=== PATIENT | female | born 1950 | race Caucasian/White ===

== ENCOUNTER 2016-11-09 08:54 | Day surgery (SDC) | payer MEDICARE ==
[~2016-11-09] VITALS: Ht 160 cm; Wt 65.4 kg
[2016-11-09] MEDS ORDERED: NITR1SUB3 SL (09:29)
[2016-11-09] MEDS ORDERED: ATOR1TAB18 PO (09:29)
[2016-11-09] MEDS ORDERED: CHOL100025 CHEW (09:29)
[2016-11-09] MEDS ORDERED: MAG-TAB PO (09:29)
[2016-11-09] MEDS ORDERED: LEVO50TA4 PO (09:29)
[2016-11-09] MEDS ORDERED: LISI20TA PO (09:29)
[2016-11-09] MEDS ORDERED: ASPI81CH37 CHEW (09:29)
[2016-11-09 09:30] VITALS: BP 171/105; PULSE 65; RESP 16; TEMP 98; O2SAT 98
[2016-11-09 09:39] LABS: AUTOMATED NEUTROPHIL # 2.4 TH/MM3 (1.8-7.7); BASOPHIL # 0.1 TH/MM3 (0-0.2); EOSINOPHIL # 0.2 TH/MM3 (0-0.4); EOSINOPHIL % 4.6 % (0.0-4.0); HEMO FLAGS DIFF FINAL; LYMPHOCYTE # 1.9 TH/MM3 (1.0-4.8); MEAN CELL VOLUME 88.8 FL (80.0-100.0); MEAN CORPUSCULAR HEMOGLOBIN 29.9 PG (27.0-34.0); MEAN CORPUSCULAR HGB CONC 33.7 % (32.0-36.0); MONO % 7.8 % (0.0-8.0); NEUT % 48.6 % (16.0-70.0); PLATELET COUNT 204 TH/MM3 (150-450); RED CELL DISTRIBUTION WIDTH 13.4 % (11.6-17.2)
[2016-11-09 09:45] LABS: APTT (PATIENT) 23.8 SEC (24.3-30.1); INTERNATIONAL NORMALIZED RATIO 0.9 RATIO; PROTHROMBIN TIME - PATIENT 10.2 SEC (9.8-11.6)
[2016-11-09] MEDS ORDERED: diphenhydrAMINE HCL 50 MG CAP PO SCH ×2 (09:45→10:45)
[2016-11-09] MEDS ORDERED: NS 1000P @30 MLS/HR (KVO) IV SCH ×2 (09:45→10:45)
[2016-11-09 10:03] LABS: BICARBONATE 29.5 MEQ/L (21.0-32.0); POTASSIUM 3.4 MEQ/L (3.5-5.1)
[2016-11-09] MEDS ORDERED: HEPARIN-NS/PF INJ 500 ML ONE (11:27)
[2016-11-09] MEDS ORDERED: MIDAZOLAM HCL 2 MG/2 ML VIAL ONE ×2 (11:27→12:31)
[2016-11-09] MEDS ORDERED: VERAPAMIL HCL 5 MG/2 ML VIAL ONE (11:28)
[2016-11-09] MEDS ORDERED: NITROGLYCERIN INJ 5 ML ONE (11:28)
[2016-11-09] MEDS ORDERED: HEPARIN SODIUM - IV 10,000 UNITS/10 ML VIAL ONE (11:28)
[2016-11-09] MEDS ORDERED: IOHEXOL 350 MG/ML 100 ML BTL (for Cath Lab) OTHER ONE (11:50)
[2016-11-09] MEDS ORDERED: PRASUGREL 10 MG TAB ONE (13:04)
--- NOTE | 2016-11-09 13:30 | CATHPROC ---
[employer] HIS Report Study Information Study Number Admission Scheduled Start Study Start [id number] Nov 09 2016 8:54AM 11/09/2016 Nov 09 2016 12:03PM [place] Service Cardiac Catheterization Admit Source Facility Department Other [facility] - [facility] Physician and Clinical Staff Initial MD Lewis, Jared Organizational Research Consultant Erika Pickering BSRKatiana Recorder Lizbet Jacobs,MACHINE FEEDER FLOORPERSON TECH2 Scrub Malathi Corado,MOTTLE LAY UP OPERATOR TECH2 Procedures Performed Procedure Location (Site) Vessel Name Coronary Angiograms LCA Left Coronary Coronary Angiograms RCA Right Coronary Drug Eluting Inflatio LAD Prox Left Coronary LV Gram-hand inj. LV LV Ventricle PTCA LAD Prox Left Coronary Wire insertion Radial (right) Radial Art. Equipment Time Field Rep Description Size Mfg Part Number Used/Scraped WIRE, BALANCE MIDDLEWEIGHT [id number] 12:39 [employer] 190CM Used 190CM *[id number] TRANSDUCER, TRUWAVE [id number] 12:08 PRABHAKAR CAVAZOS * Used W/STOCKCOCK *[id number] [id number] *[id number] [id number] *[id number] *[id number] 12:08 [employer] PACK, CCL CUSTOM * Used *[id number] 12:08 [employer] SUPPORT, ARTERIAL ADULT [id number] Used BALLOON, 2.5 X 12MM NC [id number] 12:42 MEDTRONIC 12MM Used EUPHORA *[id number] BALLOON, 3.0 X 8MM NC [id number] 12:46 MEDTRONIC 8MM Used EUPHORA *[id number] BALLOON, 3.5 X 15MM NC [id number] 12:55 MEDTRONIC 15MM Used EUPHORA *[id number] STENT, 3.0 18 RESOLUTE [id number] 12:52 MEDTRONIC 3.0 18 Used INTEGRITY RX *[id number] 12:44 [employer] 30 FROILAN INDEFLATOR Used *[id number] BAND, RADIAL COMPRESSION TR [id number] 13:18 [employer] MEDICAL 24CM Used SHORT 24 *[id number] 12:08 [employer] WIRE, 3MMJ .035 180CM 180CM Used *[id number] 12:08 NAMIC MANIFOLD, 4 PORT * Used *[id number] 12:08 [employer]ED OMNIPAQUE, 350 MG, 150ML 150ML [id number] Used [id number] 12:08 [facility] BLANKET,WARM AIR CCL * Used *[id number] SHEATH, FR6 TRANSRADIAL 12:08 [employer]zzle FR 6 RM*[id number] Used SLENDER 10CM Equipment Model, Serial, Lot Number and Expiration Data Description Model Number Serial Number Lot Number Expiration Date STENT, 3.0 18 RESOLUTE [id number] 07-15-2018 INTEGRITY RX History: Current Medications Medication Dosage/Unit Route Frequency Last Date/Time Taken ASA Statins (any) Synthroid LISINOPRIL Magnesium NTG SL VITAMIN D History: Allergies Allergy Reaction No Known Allergies History: Risk Factors Family History of Hypertension Dyslipidemia Previous OK Previous Heart Failure Premature CAD Yes Yes No No No Prior Valve Prior PCI Prior CABG Surgery No Yes No Cerebrovascular Peripheral Artery Chronic Lung On Dialysis Diabetes Disease Disease Disease No No No No No History: Symptoms/Diagnosis Selection Items Chest pain History: CV Disease Selection Items Known CAD History: Stress Tests Stress or Imaging Studies Performed No History: Other Disease Selection Items CAD History: Other Current Smoker No Labs Hgb (g/dl) Hct (%) WBC (l/cumm) Platelets (thousands) 11.60-17.00 35.00-51.00 4.00-11.00 150.00-450.00 13.5 40 5 204 Glucose (mg/dl) BUN (mg/dl) Creatinine (mg/dl) BUN:Creatinine (1:x) 74.00-106.00 7.00-18.00 0.50-1.30 10.00-20.00 87 14 0.7 20 Na (meq/l) K (meq/l) Cl (meq/l) CO2 (mmol/L) Ca (mg/dl) 136.00-145.00 3.50-5.10 98.00-107.00 21.00-32.00 8.50-10.10 138 3.4 104 29.5 9.3 PT (sec) PTT (sec) INR (PTT:PT) 9.80-11.60 24.30-30.10 0.90-1.10 10.2 23.8 0.9 CPK-MB (ng/ML) 0.50-3.60 Not Drawn Medication Medication Total Dose (Bolus/Oral) Medication Total Dosage/Unit 1% XYLOCAINE 20 mL EFFIENT 60 mg FENTANYL 100 mcg HEPARIN 5000 units RADIAL COCKTAIL 5 mL (Bolus) VERSED 4 mg Medications (Bolus/Oral) Medication Time Given Dosage/Unit Administered By Reason VERSED 11/09/2016 12:18:03 PM 2 mg Rittenour, Erika 2 mg VERSED given in lab by Erika Pickering BSRN in Left Antecubital via Peripheral IV. Ordered by Jared Lewis. FENTANYL 11/09/2016 12:19:00 PM 50 mcg Rittenour, Erika 50 mcg FENTANYL given in lab by Erika Pickering BSRN in Left Antecubital via Peripheral IV. Ordered by Jared Lewis. 1% XYLOCAINE 11/09/2016 12:20:33 PM 20 mL Jared Lewis 20 mL 1% XYLOCAINE given in lab by Jared Lewis in Right Radial via Subcutaneous. Ordered by Jared Zhu. Ntg 200mcg Verapamil 2.5mg Heparin RADIAL COCKTAIL 11/09/2016 12:23:06 PM 5 mL (Bolus) Jared Lewis 2500U 5 mL (Bolus) RADIAL COCKTAIL given in lab by Jared Lewis in Right Radial via Radial. Using [Maureen ution Name]. Ordered by Jared Lewis. Reason: Ntg 200mcg Verapamil 2.5mg Heparin 2500U. FENTANYL 11/09/2016 12:30:28 PM 50 mcg Rittenour, Erika 50 mcg FENTANYL given in lab by Erika Pickering BSRN in Left Antecubital via Peripheral IV. Ordered by Jared Lewis. VERSED 11/09/2016 12:31:38 PM 2 mg Rittenour, Erika 2 mg VERSED given in lab by Erika Pickering BSRN in Left Antecubital via Peripheral IV. Ordered by Jared Lewis. HEPARIN 11/09/2016 12:32:07 PM 5000 units Rittenour, Erika 5000 units HEPARIN given in lab by Erika Pickering BSRN in Left Antecubital via Peripheral IV. Orde red by Jared Lewis. EFFIENT 11/09/2016 1:11:21 PM 60 mg Rittenour, Erika 60 mg EFFIENT given in lab by Erika Pickering BSRN via Oral. Ordered by Jared Lewis. Medication (Drip) Medication Time Given Dosage/Unit Concentration/Unit Diluent (ml) Solution IV Solutions 11/09/2016 12:03:18 PM 0 mL (IV) 500 NaCl .9 Patient arrived on IV Solutions in Left Antecubital via Peripheral IV. Pump/Drip Flow = 20 ml/hr usin g NaCl .9. Initial Case Assessment Cardiovascular HR Rhythm NIBP Chest Pain 65 sr 187/103 0 Circulatory - Right Pulses Dorsalis Pedis Femoral Radial 2 2 2 Scale (0,1,2,3,4,d) Scale (0,1,2,3,4,d) Neurological State Oriented to time-place- Alert Moves all extremities person Respiration - General Respiration Rate SpO2 (%) (B/min) 10 100 Final Case Assessment Cardiovascular HR Rhythm NIBP Chest Pain 57 SB 165/84 0 Circulatory - Right Pulses Dorsalis Pedis Femoral Radial 2 2 2 Scale (0,1,2,3,4,d) Scale (0,1,2,3,4,d) Neurological State Oriented to time-place- Alert Moves all extremities person Respiration - General Respiration Rate SpO2 (%) (B/min) 19 100 Chronological Log Time Study Chronological Log 11:50:38 Patient arrived via Bed. 11:50:47 Patient Name, D.O.B, / Armband Verified By R.N. 12:02:56 Pre-op and post- op instructions given; patient acknowledges understanding of instructions. 12:02:57 Verbal Stimulation=2 Physical Stimulation=2 Airway=2 Respiration=2 TOTAL=8. (0=absent, 1=li mited, 2=present) 12:03:04 Allens test performed on the right radial and ulnar artery. 12:03:08 Patient has been NPO for More than 6Hrs. 12:03:09 Skin Breakdown-none 12:03:14 Zaid Prominences Protected 12:03:16 A # 20 IV was noted in the Antecubital (left). Grade = patent 12:03:18 Patient arrived on IV Solutions in Left Antecubital via Peripheral IV. Pump/Drip Flow = 20 ml/hr using NaCl .9. 12:03:23 History and physical on the chart or being dictated. Assessment: Initial Case, HR=65 BPM, Rhythm=sr, KJSG=163/103 mmhg, Chest Pain=0 Right Pulses: Grant Ped=2, Femoral=2, Radial=2 12:03:25 Neurological: State=Alert, Ox3, SHULTZ Respiration: Resp=10 B/min, WoG7=712 % Vitals capture started with the following parameters, Patient=Adult, Interval=5 min, Initial Pr isatrv=955 mmHg, 12:03:58 Deflation Rate=5 mmHg 12:04:41 HR=96 bpm, DNRN=122/103 mmhg, GdH2=315.0 %, Resp=16 B/min 12:09:02 Reference ECG taken 12:10:03 Right groin and right wrist prepped with 2% chlorhexidine, and draped after a 3 min. waitin g time. 12:10:29 HR=61 bpm, GFCH=522/88 mmhg, QwM8=226.0 %, Resp=8 B/min, David=10 12:10:40 Pressure channel 1 zeroed. 12:14:39 HR=62 bpm, LNVF=793/91 mmhg, SpO2=96.0 %, Resp=2 B/min, Pain=0, David=10 12:14:56 MD paged 12:16:18 MD arrived. 12:16:56 Consent signed by the physician and the patient and verified by the [facility] staff. 2 mg VERSED given in lab by Erika Pickering BSRN in Left Antecubital via Peripheral IV. Order ed by Joshua, 12:18:03 Jared. 50 mcg FENTANYL given in lab by Erika Pickering BSRN in Left Antecubital via Peripheral IV. O rdered by Joshua, 12:19:00 Jared. 12:19:42 HR=67 bpm, TUDP=044/95 mmhg, SpO2=97.0 %, Resp=13 B/min Time Out. Correct patient, correct procedure,correct physician, power injector not loaded with contrast with surgical 12:20:05 team present. Time Out Concurred by MD and individual staff in procedure 12:20:32 Case Start 20 mL 1% XYLOCAINE given in lab by Jared Lewis in Right Radial via Subcutaneous. Ordered by Joshua, 12:20:33 Jared. 12:21:13 Access site was Radial Artery. A SHEATH, FR6 TRANSRADIAL SLENDER 10CM FR 6 was advanced into the Radial (right) using the Perc utaneous 12::22 technique. 5 mL (Bolus) RADIAL COCKTAIL given in lab by Jared Lewis in Right Radial via Radial. Usin g [Solution Name]. 12:23:06 Ordered by Jared Lewis. Reason: Ntg 200mcg Verapamil 2.5mg Heparin 2500U. A JR 4.0 INFINITI CATHETER FR 4 was advanced over a wire. OMNIPAQUE, 350 MG, 150ML 150ML was us ed for ::21 injections. 12:24:42 HR=84 bpm, PJKU=303/68 mmhg, SpO2=95.0 %, Resp=17 B/min Recorded Pressure: LV, HR=68, Condition=Condition 1 12:25:02 (Left Ventricle) LV 109/1/2 12:25:17 The LV was manually injected with 10 cc's and visualized. OMNIPAQUE, 350 MG, 150ML 150ML us ed. Recorded Pressure: LV, Ao, HR=69, Condition=Condition 1 12:25:46 (Left Ventricle) LV 107/3/6, (Aorta) Ao 113/73/92 12:26:14 The RCA was injected and visualized at various angles. OMNIPAQUE, 350 MG, 150ML 150ML used . After removing the current catheter a JL 3.5 INFINITI CATHETER FR 4 was advanced over a WIRE, 3 MMJ .035 180CM 12:27:00 180CM. 12:28:55 The LCA was injected and visualized at various angles. OMNIPAQUE, 350 MG, 150ML 150ML used . 12:29:34 HR=60 bpm, GQRF=379/69 mmhg, SpO2=92.0 %, Resp=26 B/min 50 mcg FENTANYL given in lab by Erika Pickering BSRN in Left Antecubital via Peripheral IV. O rdered by Joshua, 12:30:28 Jared. 2 mg VERSED given in lab by Erika Pickering BSRN in Left Antecubital via Peripheral IV. Order ed by Joshua, 12:31:38 Jared. 5000 units HEPARIN given in lab by Erika Pickering BSRN in Left Antecubital via Peripheral IV . Ordered by Mercado- 12:32:07 Jared Desai. After removing the current catheter a XB 3.5 GUIDE CATHETER FR 6 was advanced over a WIRE, 3MMJ .035 180CM 12:33:46 180CM. 12:34:40 HR=67 bpm, GMLG=586/59 mmhg, Resp=5 B/min 12:37:59 A WIRE, BALANCE MIDDLEWEIGHT 190CM 190CM was inserted via Radial (right). 12:40:11 HR=56 bpm, LCEF=178/66 mmhg, SpO2=97.0 %, Resp=7 B/min 12:41:54 Interventional wire has crossed the lesion A BALLOON, 2.5 X 12MM NC EUPHORA 12MM was inserted over WIRE, BALANCE MIDDLEWEIGHT 190CM 190CM via 12:42:20 the LAD Prox. A BALLOON, 2.5 X 12MM NC EUPHORA 12MM over a WIRE, BALANCE MIDDLEWEIGHT 190CM 190CM in the LAD Prox 12:43:49 was inflated using a 30 FROILAN INDEFLATOR at 16 froilan for 18 sec. A BALLOON, 2.5 X 12MM NC EUPHORA 12MM over a WIRE, BALANCE MIDDLEWEIGHT 190CM 190CM in the LAD Prox 12:44:28 was inflated using a 30 FROILAN INDEFLATOR at 20 froilan for 20 sec. 12:44:34 HR=51 bpm, YLMB=077/65 mmhg, SpO2=98.0 %, Resp=15 B/min 12:45:11 Balloon Removed. A BALLOON, 3.0 X 8MM NC EUPHORA 8MM was inserted over WIRE, BALANCE MIDDLEWEIGHT 190CM 190CM vi a the 12:46:33 LAD Prox. A BALLOON, 3.0 X 8MM NC EUPHORA 8MM over a WIRE, BALANCE MIDDLEWEIGHT 190CM 190CM in the LAD Pr ox was 12:47:14 inflated using a 30 FROILAN INDEFLATOR at 18 froilan for 18 sec. A BALLOON, 3.0 X 8MM NC EUPHORA 8MM over a WIRE, BALANCE MIDDLEWEIGHT 190CM 190CM in the LAD Pr ox was 12:47:44 inflated using a 30 FROILAN INDEFLATOR at 20 froilan for 20 sec. 12:50:18 HR=53 bpm, DLJJ=997/66 mmhg, SpO2=98.0 %, Resp=13 B/min 12:50:35 Balloon Removed. A STENT, 3.0 18 RESOLUTE INTEGRITY RX 3.0 18 was advanced through a XB 3.5 GUIDE CATHETER FR 6 over a 12:51:07 WIRE, BALANCE MIDDLEWEIGHT 190CM 190CM. A STENT, 3.0 18 RESOLUTE INTEGRITY RX 3.0 18 was deployed using a 30 FROILAN INDEFLATOR at 14 atmos pheres for 12:53:37 15 seconds in the LAD Prox. 12:54:28 Delivery device removed 12:55:19 HR=49 bpm, NFSM=665/72 mmhg, SpO2=98.0 %, Resp=18 B/min A BALLOON, 3.5 X 15MM NC EUPHORA 15MM was inserted over WIRE, BALANCE MIDDLEWEIGHT 190CM 190CM via 12:55:23 the LAD Prox. A BALLOON, 3.5 X 15MM NC EUPHORA 15MM over a WIRE, BALANCE MIDDLEWEIGHT 190CM 190CM in the LAD Prox 12:56:11 was inflated using a 30 FROILAN INDEFLATOR at 12 froilan for 15 sec. 12:56:59 Balloon Removed. 12:57:19 Guide and Wire removed 12:58:07 Case End 13:00:14 HR=51 bpm, XOVF=621/85 mmhg, GnO8=867.0 %, Resp=19 B/min, David=10 Radial Compression Device Used. 14 mLs of air placed in BAND, RADIAL COMPRESSION TR SHORT 24 24 CM. Affected 13:01:27 hand 100 % O2 saturation. 13:04:44 HR=57 bpm, TCQM=715/84 mmhg, Resp=19 B/min 13:08:23 No case complications noted. 13:08:24 Cine recording checked. 13:08:29 [facility]: Final Case, HR=57 BPM, Rhythm=SB, KAXE=376/84 mmhg, Chest Pain=0 Right Pulses: Grant Ped=2, Femoral=2, Radial=2 13:10:55 Neurological: State=Alert, Ox3, SHULTZ Respiration: Resp=19 B/min, HlW4=915 % 13:11:21 60 mg EFFIENT given in lab by Erika Pickering BSRN via Oral. Ordered by Jared Lewis . 13:14:26 Implantable Device card placed in patient's chart. 13:15:43 Patient transported to DOCU End Study - Contrast Media Used In Study Contrast Total Opened (mL) Total Used (mL) Total Wasted (mL) Omnipaque 200 150 50 End Study - Maximum Contrast Load Max Contrast Load (mL) 467.2 End Study - Radiation Exposure Fluoro Time (minutes) 11.6 End Study - Sheaths Sheaths Pulled By Sheath Hold Time (min) Malathi Corado End Study - Patient Disposition Complications Transferred To Interventional Outcome No Telemetry Bed successful
[2016-11-09] MEDS ORDERED: PRAS10TA PO (13:46)
--- NOTE | 2016-11-09 13:49 | MA ---
cc: LINETTENANCY DATE: 11/09/2016 DATE OF : 1950 PROCEDURE PERFORMED 1. Left heart catheterization. 2. Selective right and left coronary angiography. 3. Left ventriculogram. 4. Percutaneous coronary intervention/drug-eluting stent to in-stent restenosis of proximal LAD. INDICATION Worsening angina with exertion and shortness of breath, known history of CAD/ unstable angina. PROCEDURE DESCRIPTION Consent signed. The patient was brought into the cardiac laboratory analyst in a fasting state. The right wrist and groins were prepped and draped in a sterile fashion. Using 1% lidocaine for local anesthesia and a micropuncture kit a 6- Gabonese sheath was inserted into the right radial artery. An antispasmodic cocktail was given then selective right and left coronary angiography was performed with a JR4 and a JL4 4-Gabonese diagnostic catheter. Angiography was taken in multiple views. Then the JR4 diagnostic catheter was introduced to the ventricle over a wire. It was followed by pressure recordings, left ventriculogram and pullback. We identified an in-stent restenosis of the proximal LAD stent of about 80%, which went beyond the end of the stent. The rest of the stents in the right coronary artery and the circumflex were patent. The in-stent restenosis was amendable to PCI so we prepared to fix. Heparin was given for IV anticoagulation. The left main was engaged with an XB 3.5 6- Gabonese guide. The vessel was wired with a BMW wire. The wire was anchored distally. The lesion was predilated with a 2.5 x 12 balloon and noncompliant 3.0 x 8 balloon. There still was significant ISR especially outside the previous stent for which the decision was made to place another drug-eluting stent, for which we inserted and deployed a 3.0 x 18 drug-eluting stent. The stent was postdilated with a noncompliant 3.5 x 15 balloon to high atmospheres. Final angiographic views revealed good stent apposition and expansion with DARRYN- III flow. The patient tolerated the procedure well without complications. Estimated blood loss less than 30 cc. Total contrast was 150 cc. The right wrist access site was closed with a TR band. The patient was given Effient loading after the procedure. RESULTS LEFT VENTRICLE The left ventricular pressure was 107/3 with an LVEDP of 6. The aortic pressure was 113/73 with a mean of 92. There was no gradient upon pullback from the left ventricle to the aorta. The left ventriculogram revealed a symmetrically patience ventricle with an estimated ejection fraction of 60%. ANGIOGRAPHY 1. The right coronary artery is a dominant vessel. It is giving off the PDA as well as several posterolateral branches. The right coronary artery has minimal luminal irregularities throughout, a 10% lesion proximally, a 30% lesion in the mid to proximal segment, and there is a patent stent in the distal right coronary artery. The PDA is patent with DARRYN-III flow and nonobstructive coronary artery disease. 2. The left main is short and patent with nonobstructive coronary artery disease. 3. The LAD is a transapical vessel. There is a stent in its proximal segment which has in-stent restenosis of about 80%. The stenosis is type 3 and goes beyond the distal area of the stent to the [place] vessel. The LAD has three diagonal branches which are patent with nonobstructive coronary artery disease. 4. The left circumflex artery is composed of two OM branches which are both patent. The circumflex has a proximal stent which is also patent. There is no significant obstructions in the left circumflex artery. CONCLUSIONS 1. Successful percutaneous coronary intervention/drug-eluting stent to proximal LAD. 2. Patent right coronary artery and left circumflex artery stents. 3. Preserved LV systolic function with EF of 60%. PLAN/RECOMMENDATIONS The patient will go back to the [facility] for post-cath care. She will be given IV hydration. She will continue the aspirin and the Effient. She will continue aggressive medical management for coronary artery disease with the beta-fredo , statin and KITA inhibitor. She will follow-up with me in a week in the clinic. If she is stable post left heart cath resting she may be able to go home today. MD ANNA Flores/JASON /1:23 PM /1:40 PM MAUREEN
[2016-11-09] MEDS ORDERED: MISC INFORMATION XX ONE ×2 (14:15)
[2016-11-09] MEDS ORDERED: PRASUGREL 10 MG TAB PO ONE (16:00)
[2016-11-09] MEDS ORDERED: SODIUM CHLOR 0.9% 1000 ML INJ 1,000 ML IV SCH (16:00)
[2016-11-09] MEDS ORDERED: ASPIRIN 81 MG CHEW TAB PO SCH (16:00)
--- NOTE | 2016-11-09 17:55 | EKG ---
Date Performed: 11/09/2016 Time Performed: 09:34:30 PTAGE: 66 years EKG: Sinus bradycardia with sinus arrhythmia. Normal ECG except for rate NO PREVIOUS TRACING DOCTOR: Jon Carroll Interpretating Date/Time 11/09/2016 17:54:18
[2016-11-10] MEDS ORDERED: PRASUGREL 10 MG TAB PO SCH (09:00)
== END 2016-11-09 18:48 | disposition home or self-care (01) ==
LOC: HCAT 08:54 → HDIC 08:56 → HCAT 18:48
PROVIDERS: ATTEND Radiology Vascular & Interventional Radiology
DX: R07.9 Chest pain, unspecified (principal); I25.110 Atherosclerotic heart disease of native coronary artery with unstable angina pectoris; R00.1 Bradycardia, unspecified; I49.8 Other specified cardiac arrhythmias; I10 Essential (primary) hypertension; E03.9 Hypothyroidism, unspecified; E78.5 Hyperlipidemia, unspecified; Z79.899 Other long term (current) drug therapy; Z79.82 Long term (current) use of aspirin
CPT/HCPCS: 80048; 85025; 85610; 85730; 92928; 93005; 93458; C1725; C1769; C1874; C1887; C1893; J1644; J2250; J3010; Q9967

== ENCOUNTER 2017-07-14 07:45 | Day surgery (SDC) | payer MEDICARE ==
[~2017-07-14] VITALS: Ht 162.6 cm; Wt 64.6 kg
[~2017-07-14 07:45] MED LIST: ASPI81CH6 CHEW; ATOR80TA45 PO; CHOL100025 CHEW; LEVO50TA4 PO; LISI20TA PO; MAG-TAB PO; NITR1SUB3 SL; PRAS10TA PO
[2017-07-14] MEDS ORDERED: IOHEXOL 350 MG/ML 50 ML BTL (for Cath Lab) OTHER ONE (07:46)
[2017-07-14 08:25] VITALS: BP 175/105; PULSE 66; RESP 18; TEMP 97.9; O2SAT 98
[2017-07-14] MEDS ORDERED: NORV2.5T PO (08:26)
[2017-07-14] MEDS ORDERED: NS 1000P @30 MLS/HR (KVO) IV SCH (08:30)
[2017-07-14 08:31] LABS: AUTOMATED NEUTROPHIL # 2.7 TH/MM3 (1.8-7.7); BASOPHIL % 0.7 % (0.0-2.0); EOSINOPHIL # 0.2 TH/MM3 (0-0.4); EOSINOPHIL % 4.2 % (0.0-4.0); HEMOGLOBIN 13.4 GM/DL (11.6-15.3); LYMPH % 35.6 % (9.0-44.0); LYMPHOCYTE # 1.8 TH/MM3 (1.0-4.8); MEAN CELL VOLUME 89.2 FL (80.0-100.0); MEAN CORPUSCULAR HEMOGLOBIN 29.9 PG (27.0-34.0); MEAN CORPUSCULAR HGB CONC 33.5 % (32.0-36.0); MEAN PLATELET VOLUME 8.6 FL (7.0-11.0); MONO % 7.2 % (0.0-8.0); MONOCYTE # 0.4 TH/MM3 (0-0.9); NEUT % 52.3 % (16.0-70.0); PLATELET COUNT 209 TH/MM3 (150-450); RED BLOOD COUNT 4.49 MIL/MM3 (4.00-5.30); RED CELL DISTRIBUTION WIDTH 13.5 % (11.6-17.2); WHITE BLOOD COUNT 5.1 TH/MM3 (4.0-11.0)
[2017-07-14 08:48] LABS: BICARBONATE 29.4 MEQ/L (21.0-32.0); CALCIUM 9.2 MG/DL (8.5-10.1); CREATININE 0.77 MG/DL (0.50-1.00)
[2017-07-14] MEDS ORDERED: MIDAZOLAM HCL 2 MG/2 ML VIAL ONE (09:40)
[2017-07-14] MEDS ORDERED: HEPARIN-NS/PF FLUSH BAG 2,000 ML IV FLUSH ONE (09:40)
[2017-07-14] MEDS ORDERED: NITROGLYCERIN INJ 5 ML ONE (09:40)
[2017-07-14] MEDS ORDERED: HEPARIN SODIUM - IV 10,000 UNITS/10 ML VIAL ONE (09:40)
[2017-07-14] MEDS ORDERED: VERAPAMIL HCL 5 MG/2 ML VIAL ONE (09:49)
--- NOTE | 2017-07-14 10:39 | CATHPROC ---
[employer] HIS Report Study Information Study Number Admission Scheduled Start Study Start [id number] Jul 14 2017 7:45AM 07/14/2017 Jul 14 2017 9:32AM [place] Service Cardiac Catheterization Admit Source Facility Department Other [facility] - Prior Authorization Nurse Physician and Clinical Staff Initial Jon Tsai Spoon Maker Mckenna Negrete,CASIE Recorder Pily Dunn,RT(R) (BS) Scrub Norma BardalesRT(R) Procedures Performed Procedure Location (Site) Vessel Name Coronary Angiograms LCA Left Coronary Coronary Angiograms RCA Right Coronary L Heart Cath Equipment Time Egg And Spice Mixer Description Size Mfg Part Number Used/Scraped TRANSDUCER, TRUWAVE [id number] 09:43 PRABHAKAR CAVAZOS * Used W/dermSearchCOCK *[id number] *[id number] 09:43 [employer] PACK, CCL CUSTOM * Used *[id number] 09:43 [employer] SUPPORT, ARTERIAL ADULT 43680 *[id number] Used [id number] 10:22 MEDTRONIC JL 3.5 DXTERITY CATHETER FR 5 Used *[id number] BAND, RADIAL COMPRESSION TR [id number] 10:24 [employer]ureLa[employer] MEDICAL 24CM Used SHORT 24 *[id number] 09:43 Yumit WIRE, EXCHANGE 260CM 3MMJ 260CM Used *[id number] 09:43 NAMIC MANIFOLD, 4 PORT * Used *[id number] 09:43 NYCOMED OMNIPAQUE, 350 MG, 150ML 150ML [id number] Used [id number] 09:43 PATEL MEDICAL BLANKET,WARM AIR CCL * Used *[id number] SHEATH, FR6 TRANSRADIAL RM*[id number] 09:43 Arimaz FR 6 Used SLENDER 10CM *[id number] History: Current Medications Medication Dosage/Unit Route Frequency Last Date/Time Taken ASA Statins (any) LISINOPRIL EFFIENT History: Allergies Allergy Reaction No Known Allergies History: Risk Factors Family History of Hypertension Dyslipidemia Previous NH Previous Heart Failure Premature CAD Yes Yes Yes Yes No Prior Valve Prior PCI Prior PCIDate Prior CABG Surgery No Yes 10/30/2016 No Cerebrovascular Peripheral Artery Chronic Lung On Dialysis Diabetes Disease Disease Disease No No No No No History: CV Disease Selection Items Known CAD History: Stress Tests Stress or Imaging Studies Performed No History: Other Disease Selection Items CAD History: Other Current Smoker No Labs Hgb (g/dl) Hct (%) WBC (l/cumm) Platelets (thousands) 11.60-17.00 35.00-51.00 4.00-11.00 150.00-450.00 13.4 40 5.1 209 Glucose (mg/dl) BUN (mg/dl) Creatinine (mg/dl) BUN:Creatinine (1:x) 74.00-106.00 7.00-18.00 0.50-1.30 10.00-20.00 87 15 0.7 21.4 Na (meq/l) K (meq/l) 136.00-145.00 3.50-5.10 141 3.9 INR (PTT:PT) 0.90-1.10 1 CPK-MB (ng/ML) 0.50-3.60 Not Drawn Medication Medication Total Dose (Bolus/Oral) Medication Total Dosage/Unit 1% XYLOCAINE 1 mL FENTANYL 25 mcg RADIAL COCKTAIL 1 units VERSED 0.5 mg Medications (Bolus/Oral) Medication Time Given Dosage/Unit Administered By Reason VERSED 07/14/2017 10:15:36 AM 0.5 mg Mckenna Negrete 0.5 mg VERSED given in lab by Mckenna Negrete RN in Left Forearm via Peripheral IV. 1% XYLOCAINE 07/14/2017 10:15:54 AM 1 mL Jon Carrlol 1 mL 1% XYLOCAINE given in lab by Jon Carroll in Right Radial via Subcutaneous. FENTANYL 07/14/2017 10:16:46 AM 25 mcg Mckenna Negrete 25 mcg FENTANYL given in lab by Mckenna Negrete, CASIE in Left Forearm via Peripheral IV. Ntg 200mcg Verapamil 2.5mg Heparin RADIAL COCKTAIL 07/14/2017 10:18:02 AM 1 units Jon Carroll 2500U 1 units RADIAL COCKTAIL given in lab by Jon Carroll via Radial. Reason: Ntg 200mcg Verapamil 2.5mg Heparin 2600U. Medication (Drip) Medication Time Given Dosage/Unit Concentration/Unit Diluent (ml) Solution IV Solutions 07/14/2017 9:35:35 AM 0 mL (IV) 500 NaCl .9 IV Solutions given in lab by Mckenna Negrete RN in Left Forearm via Peripheral IV. Pump/Drip Flow = 30 ml/hr using NaCl .9. Initial Case Assessment Cardiovascular HR Rhythm NIBP Chest Pain 68 reg 174/91 0 Edema Present Skin color Skin None Normal Warm Dry Circulatory - Right Pulses Dorsalis Pedis Femoral Radial 2 2 3 Scale (0,1,2,3,4,d) Circulatory - Left Pulses Dorsalis Pedis Femoral Radial 2 2 Scale (0,1,2,3,4,d) Circulatory - Lower Extremities Color Lower Right Color Lower Left Normal Normal Neurological State Oriented to time-place- Alert Moves all extremities person Respiration - General Respiration Rate SpO2 (%) (B/min) 15 100 Chronological Log Time Study Chronological Log 9:32:55 Patient arrived via Bed. 9:32:56 Patient Name, D.O.B, / Armband Verified By R.N. 9:35:14 Consent signed by the physician and the patient and verified by the Prior Authorization Nurse staff. 9:35:15 Pre-op and post- op instructions given; patient acknowledges understanding of instructions. 9:35:15 Verbal Stimulation=2 Physical Stimulation=2 Airway=2 Respiration=2 TOTAL=8. (0=absent, 1=li mited, 2=present) 9:35:16 Presedation assessment performed by Prior Authorization Nurse RN. 9:35:22 Allens test performed on the right radial and ulnar artery. 9:35:24 Patient has been NPO for More than 6Hrs. 9:35:29 Skin Breakdown none per pt 9:35:30 Patient Warmer Placed on the Table. 9:35:31 Zaid Prominences Protected 9:35:34 A # 20 IV was noted in the Forearm (left). Grade = 0 IV Solutions given in lab by Mckenna Negrete, RN in Left Forearm via Peripheral IV. Pump/Drip F low = 30 ml/hr using 9:35:35 NaCl .9. 9:35:37 History and physical on the chart or being dictated. Assessment: Initial Case, HR=68 BPM, Rhythm=reg, CYAM=503/91 mmhg, Chest Pain=0, Edema=None, Co damien=Normal, Skin = Warm, Dry Right Pulses: Grant Ped=2, Femoral=2, Radial=3 Left Pulses: Grant Ped=2, Femoral=2 9:35:39 Lower Right Extremities: Color=Normal Lower Left Extremities: Color=Normal Neurological: State=Alert, Ox3, SHULTZ Respiration: Resp=15 B/min, DaH0=157 % Vitals capture started with the following parameters, Patient=Adult, Interval=5 min, Initial Pr hhbrwe=224 mmHg, 9:39:04 Deflation Rate=5 mmHg, Cuff placed on Right Arm 9:40:08 HR=64 bpm, EOCS=965/91 mmhg, YnX4=338.0 %, Resp=8 B/min, Pain=0, David=10, Barney=2 9:44:18 Reference ECG taken 9:44:49 HR=61 bpm, NLMY=779/93 mmhg, QbB0=783.0 %, Resp=14 B/min, Pain=0, David=10, Barney=2 9:46:07 Right Radial and groin(s) prepped with 2% chlorhexidine, and draped after a 3 min. waiting t sujata. 9:49:46 HR=66 bpm, BQTP=160/98 mmhg, OwS5=029.0 %, Resp=13 B/min, Pain=0, David=10, Barney=2 9:50:37 MD paged 9:51:07 Pressure channel 1 zeroed. 9:54:49 HR=65 bpm, UABM=535/109 mmhg, SpO2=99.0 %, Resp=13 B/min, Pain=0, David=10, Barney=2 9:56:37 MD responded 9:59:52 HR=70 bpm, ADXZ=620/96 mmhg, SpO2=96.0 %, Resp=8 B/min, Pain=0, David=10, Barney=2 10:04:45 HR=66 bpm, ADAH=323/96 mmhg, SpO2=99.0 %, Resp=12 B/min, Pain=0, David=10, Barney=2 10:09:48 HR=63 bpm, IXFZ=313/95 mmhg, SpO2=98.0 %, Resp=14 B/min, Pain=0, David=10, Barney=2 10:10:51 MD arrived Time Out. Correct patient, correct procedure, correct physician, power injector not loaded with contrast with surgical 10:14:41 team present. Time Out Concurred by MD and individual staff in procedure. 10:14:49 HR=65 bpm, JRIN=749/105 mmhg, SpO2=98.0 %, Resp=8 B/min, Pain=0, David=10, Barney=2 10:14:51 Case Start 10:15:36 0.5 mg VERSED given in lab by Mckenna Negrete, RN in Left Forearm via Peripheral IV. 10:15:54 1 mL 1% XYLOCAINE given in lab by Jon Carroll in Right Radial via Subcutaneous. 10:16:46 25 mcg FENTANYL given in lab by Mckenna Negrete, CASIE in Left Forearm via Peripheral IV. 10:17:13 Access site was right Radial Artery. A SHEATH, FR6 TRANSRADIAL SLENDER 10CM FR 6 was advanced into the Radial (right) using the Perc utaneous 10:17:28 technique. 1 units RADIAL COCKTAIL given in lab by Jon Carroll via Radial. Reason: Ntg 200mcg Vera pamil 2.5mg 10:18:02 Heparin 2600U. A JR 4.0 INFINITI CATHETER FR 5 was advanced over a wire. OMNIPAQUE, 350 MG, 150ML 150ML was us ed for 10:18:46 injections. Recorded Pressure: LV, HR=74, Condition=Condition 1 10:19:48 (Left Ventricle) LV 140/1/6 10:19:52 HR=69 bpm, KQZL=305/79 mmhg, SpO2=99.0 %, Resp=31 B/min, Pain=0, David=10, Barney=2 Recorded Pressure: LV, Ao, HR=65, Condition=Condition 1 10:20:09 (Left Ventricle) LV 141/3/7, (Aorta) Ao 137/75/103 Recorded Pressure: Ao, HR=71, Condition=Condition 1 10:20:34 (Aorta) Ao 143/85/111 10:20:45 The RCA was injected and visualized at various angles. OMNIPAQUE, 350 MG, 150ML 150ML used . After removing the current catheter a JL 3.5 DXTERITY CATHETER FR 5 was advanced over a WIRE, E XCHANGE 260CM 10:21:15 3MMJ 260CM. 10:23:11 The LCA was injected and visualized at various angles. OMNIPAQUE, 350 MG, 150ML 150ML used . 10:24:49 HR=67 bpm, KLQZ=030/72 mmhg, SpO2=95.0 %, Resp=22 B/min, Pain=0, David=10, Barney=2 10:27:49 Catheter was removed 10::27 Case End 10:28:38 Catheter(s) removed without difficulty Radial Compression Device Used. 9 mLs of air placed in BAND, RADIAL COMPRESSION TR SHORT 24 24 CM. Affected 10:28:41 hand 94 % O2 saturation. 10:28:56 No case complications noted. 10:28:58 Bedside Report will be given. 10:29:01 A Left Heart Cath was performed. 10:29:46 HR=69 bpm, ZDQE=095/80 mmhg, SpO2=97.0 %, Resp=5 B/min, Pain=0, David=10, Barney=2 10:34:47 EOUY=008/82 mmhg, Pain=0, David=10, Barney=2 10:34:59 Vitals capture stopped. End Study - Contrast Media Used In Study Contrast Total Opened (mL) Total Used (mL) Total Wasted (mL) Omnipaque 35 35 0 End Study - Maximum Contrast Load Max Contrast Load (mL) 461.4 End Study - Radiation Exposure Fluoro Time (minutes) 1.3 End Study - Sheaths Sheaths Pulled By Sheath Hold Time (min) Norma Bardales End Study - Patient Disposition Complications Transferred To Interventional Outcome No Prior Authorization Nurse Holding No attempt made
[2017-07-14] MEDS ORDERED: MISC INFORMATION XX ONE (10:45)
--- NOTE | 2017-07-14 11:26 | MA ---
cc: Jon Carroll DO DATE: 07/14/2017 PROCEDURE: Left heart catheterization, coronary angiogram, moderate sedation 13 minutes. PREPROCEDURE DIAGNOSIS: 1. Chest pain, shortness of breath, hypertension. POSTPROCEDURE DIAGNOSIS: No change in coronary artery disease, stents patent. MEDICATIONS: 1. Versed 0.5 mg. 2. Fentanyl 25 3. Verapamil 2.5 mg. 4. Nitro 200 mcg. 5. Heparin 2600 units. CONTRAST USED: 35 mL. FLUOROSCOPY: 1.3 minutes.. MODERATE SEDATION: 13 minutes. ESTIMATED BLOOD LOSS: 10 mL. PROCEDURAL SUMMARY: Nidhi James is a pleasant 66-year-old female whom I see in the office and presented with chest pain. As chest pain was similar to previous, we decided to forego stress testing and undergo cardiac catheterization. The risks, benefits and alternatives were explained to her and she consented as such. She was brought to the lab and prepped in the usual sterile fashion. The right radial artery was accessed using a modified Seldinger technique and placement of a 5/6-Spanish Slender Sheath. This was easily aspirated and flushed. A JR4 was advanced over a J-wire to the ascending aorta and across the aortic valve for measurement of left ventricular pressure. This was pulled back across the aortic valve showing no significant gradient of aortic stenosis. A JR4 was used for selective angiography of the right coronary artery system. This was exchanged out for a JL3.5 which was used for selective angiography of the left coronary artery system. The JL3.5 was removed over a J-wire. Radial band was placed over the arteriotomy site for hemostasis. The patient left the clinical lab specialist cardiovascularly stable. ANGIOGRAPHIC SUMMARY: LEFT MAIN: Normal-sized vessel with no significant disease. It bifurcates into an LAD and circumflex. LAD: Normal-sized vessel with a stent noted in the proximal portion which is patent with 10% in-stent restenosis. Distal to this there is no significant disease throughout the LAD. The LAD does give off 1 small diagonal with 30% ostial stenosis. LEFT CIRCUMFLEX: Normal-sized vessel with a 30% lesion in the proximal portion. After this, there is a which is overall patent with no significant in-stent restenosis. The circumflex then bifurcates into two obtuse marginals which are overall tortuous, but no significant disease. RCA: Normal-sized vessel with 30% tandem lesions in the proximal portion as well as a 30% lesion in the midportion. Distal RCA has a stent which is patent and no significant restenosis. LVEDP: 7. IMPRESSIONS: 1. Chest pain concerning for coronary insufficiency. 2. Mild coronary artery disease as above with previous stents patent and no change in her coronary anatomy since previous cardiac catheterization. 3. Hypertension. RECOMMENDATIONS: 1. Ms. James appears to have no significant change in her coronary artery disease and she will be recommended continued medical therapy. 2. We will continue to try to control her blood pressure better, as this may be a cause for her chest pain and shortness of breath. She has been started on Norvasc 2.5 and I will plan to increase this if her blood pressure is still elevated at home. 3. She will followup in the office with me as previously scheduled. Thank you for allowing me to, Nidhi James. If there are any questions, please do not hesitate to call. DO DANIELA Farrell/SB , 10:48 AM , 11:24 AM
--- NOTE | 2017-07-14 13:41 | EKG ---
Date Performed: 07/14/2017 Time Performed: 08:20:04 PTAGE: 66 years EKG: Sinus rhythm with PAC(s). Short VA interval Poor R wave progression - probable normal variant Low QRS voltages in precordial leads Borderline ECG Compared to prior electrocardiogram, Premature atrial contractions a re now present. PREVIOUS TRACING : 11/09/2016 09.34 DOCTOR: Juan Enrique Interpretating Date/Time 07/14/2017 13:24:21
== END 2017-07-14 13:11 | disposition home or self-care (01) ==
LOC: HDOC 07:45 → HDIC 07:45 → HDOC 13:11
PROVIDERS: ATTEND Nuclear Medicine Nuclear Cardiology
DX: I25.10 Atherosclerotic heart disease of native coronary artery without angina pectoris (principal); I10 Essential (primary) hypertension; E78.5 Hyperlipidemia, unspecified; Z95.5 Presence of coronary angioplasty implant and graft
CPT/HCPCS: 80048; 85025; 85610; 85730; 93005; 93458; 99152; C1769; C1893; J1644; J2250; J3010; Q9967